=== PATIENT | male | born 1960 | race African-American/Black ===

== ENCOUNTER 2017-04-04 22:56 | Emergency (ER) | payer BC, OTHER ==
[~2017-04-04] VITALS: Ht 175.3 cm; Wt 99.8 kg
[2017-04-04] MEDS ORDERED: HYDROCHLOROTH12.5 M1 PO (23:48)
[2017-04-04] MEDS ORDERED: AMLODIPINE BESY10 MG PO (23:48)
[2017-04-04] MEDS ORDERED: ACETAMINOPHEN-1 EAC1 (23:50)
[2017-04-05] MEDS ORDERED: PENICILLIN VK500 M1 PO (00:10)
[2017-04-05] MEDS ORDERED: TRAMADOL 50 MG50 MG PO (00:10)
[2017-04-05 00:12] VITALS: BP 152/91
== END 2017-04-05 00:22 | disposition home or self-care (01) ==
LOC: ER 22:56
DX: K04.7 Periapical abscess without sinus (principal); I10 Essential (primary) hypertension; Z90.89 Acquired absence of other organs

== ENCOUNTER 2020-03-14 22:11 | Emergency (ER) | payer OTHER ==
[~2020-03-14] VITALS: Ht 177.8 cm; Wt 100.7 kg
[~2020-03-14 22:11] MED LIST: ACETAMINOPHEN-1 EAC1; AMLODIPINE BESY10 MG PO; HYDROCHLOROTH12.5 M1 PO; PENICILLIN VK500 M1 PO; TRAMADOL 50 MG50 MG PO
[2020-03-14 22:17] VITALS: BP 138/78
[2020-03-14] MEDS ORDERED: LIPITOR 10 MG10 M1 PO (22:21)
== END 2020-03-14 23:30 | disposition home or self-care (01) ==
LOC: ER 22:11
DX: R05 Cough (principal); I10 Essential (primary) hypertension; Z79.899 Other long term (current) drug therapy; Z20.828 Contact with and (suspected) exposure to other viral communicable diseases